=== PATIENT | female | born 1970 | race African-American/Black ===

== ENCOUNTER 2016-07-31 13:52 | Emergency (ER) | payer OTHER ==
[~2016-07-31] VITALS: Ht 167.6 cm; Wt 112.0 kg
[~2016-07-31 13:52] MED LIST: CYCLOBENZAPRINE10 M1 PO; PERCOCET 325 MG1 TA2 PO
[2016-07-31 14:19] LABS: ABSOLUTE BASOPHIL COUNT 0 /CUMM (0.0-0.2); ABSOLUTE EOSINOPHIL COUNT 0.1 /CUMM (0.0-0.7); ABSOLUTE GRANULOCYTE CT 3.9 /CUMM (1.4-6.5); ABSOLUTE LYMPH COUNT 2.1 /CUMM (1.2-3.4); ABSOLUTE MONOCYTE COUNT 0.3 /CUMM (0.10-0.60); BASOPHIL % 0.2 % (0.0-2.0); HEMATOCRIT 36.9 % (37-47); MEAN CORPUSCULAR HGB 25.4 PG (27.0-31.0); MEAN CORPUSCULAR HGB CONC 32.3 G/DL (33.0-37.0); MEAN CORPUSCULAR VOLUME 78.7 FL (81.0-99.0); MEAN PLATELET VOLUME 9.3 FL (7.4-10.4); RBC DISTRIBUTION WIDTH 17.7 % (11.5-14.5); RED BLOOD CELL CT 4.69 /CUMM (4.20-5.40); WHITE BLOOD CELL COUNT 6.4 /CUMM (4.8-10.8)
[2016-07-31 14:27] LABS: PT 10.5 SEC (9.4-12.5); PTT 30 SEC (25-37)
[2016-07-31 14:30] LABS: GRANULOCYTE % 61.3 % (42.2-75.2); PLATELET COUNT 381 /CUMM (130-400)
--- NOTE | 2016-07-31 15:43 | ED CARDIAC/CP/PALPITATIONS ---
See Addendum History of Present Illness General Chief Complaint: Chest Pain Stated Complaint: CHEST PAIN Source: patient Exam Limitations: no limitations Vital Signs & Intake/Output Vital Signs & Intake/Output Vital Signs Date Time Temp Pulse Resp B/P Pulse O2 O2 Flow FiO2 Ox Delivery Rate 07/31 1922 98.3 83 18 135/65 98 Room Air 07/31 1730 98.9 85 18 136/89 100 Room Air 07/31 1415 99 Room Air Room Air 07/31 1406 103 18 129/97 100 Room Air ED Intake and Output 08/01 0000 07/31 1200 Intake Total 0 Output Total Balance 0 Intake, Oral 0 Patient 247 lb Weight Triage Note: 45 Y/O FEMALE BIBA FROM [facility] FOR EVAL OF L SIDED CHEST PAIN X 3 DAYS. [employer] LOOM CONTROL ADMINISTERED 2 DOSES NITRO WITH NO CHANGE IN PAIN. PT ARRIVES A/O X 4, SPEAKING CLEARLY WITH NO DISTRESS NOTED. TEARFUL, C/O L SIDED CHEST PAIN X 3 DAYS MADE WORSE "BY THIS SITUATION" (REFERRING TO ARREST). PT C/O SOB, DENES NAUSEA. EKG IN PROGRESS Triage Nurses Notes Reviewed? yes : No Patient currently breastfeeds: No HPI: This patient is a 45-year-old female who presents to the emergency department today brought in by ambulance from [facility] for evaluation of chest pain. The patient reported that she has been having neck and chest pain since the end of last year. 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 She reported that the chest pain never completely subsides, and gets up to a 9 out of 10. She reported that he feels a squeezing sensation and radiates down her left arm. She denied any numbness or tingling in her extremities. The patient reported that it feels like someone is on her chest. 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 The patient denied any fevers, chills, difficulty breathing, or any urinary symptoms. (RAJESH GOLDSTEIN,HODAN) Allergies Coded Allergies: Iodinated Contrast Media - Oral and (Severe, THROAT CLOSED 05/27/16) Sulfa (Sulfonamide Antibiotics) (Severe, SWELL, THROAT CLOSES 05/27/16) acetaminophen (From VICODIN) (Severe, RASH 07/31/16) amoxicillin (Severe, RASH 07/31/16) aspirin (Severe, HIVES AND THROAT CLOSES 05/27/16) hydrocodone (From VICODIN) (Severe, RASH 07/31/16) ibuprofen (Severe, RASH 07/31/16) peanut (Severe, LIPS/TONGUE SWELLING 05/27/16) citalopram (Intermediate, HIVES 05/27/16) latex (Intermediate, HIVES 05/27/16) morphine (Intermediate, WELTS 05/27/16) codeine (RASH 07/31/16) nut - unspecified (ANAPHYLAXIS 07/31/16) Reconcile Medications Lansoprazole (Prevacid) (Unknown Strength) TAB.RAP.DR (Unknown Dose) PO DAILY HEARTBURN (Reported) place on top of the tongue let dissolve, then swallow Multivitamin (Multi-Day Vitamins) 1 EACH TABLET 1 TAB PO DAILY SUPPLEMENT ( Reported) Oxycodone HCl 10 MG TABLET 1 TAB PO 4 TIMES/DAY PAIN (Reported) Topiramate (Topamax) 100 MG TABLET 1 TAB PO 4 TIMES/DAY SEIZURES/MIGRAINES ( Reported) Zolpidem Tartrate (Ambien Cr) 12.5 MG TAB.MPHASE 1 TAB PO QPM PRN SLEEP ( Reported) (CONSTANTIN PARMAR,FRANTZ Benjamin) Past History Travel History Traveled to [place] past 21 day No Medical History Any Pertinent Medical History? see below for history Neurological: migraine, seizure, CHIARI MALFORMATION EENT: NONE Cardiovascular: CARDIAC CATH Respiratory: NONE Gastrointestinal: NONE Hepatic: NONE Renal: NONE Musculoskeletal: NONE Psychiatric: NONE Endocrine: NONE Blood Disorders: NONE Cancer(s): NONE Surgical History Surgical History: N (cholecystectomy tenectomy and ) Psychosocial History Who do you live with Spouse Services at Home None What is your primary language Mosotho Tobacco Use: Never used Family History Hx Contributory? No (RAJESH GOLDSTEIN,HODAN) Review of Systems Review of Systems Constitutional: Reports: no symptoms. EENTM: Reports: no symptoms. Respiratory: Reports: no symptoms. Cardiovascular: Reports: see HPI. GI: Reports: see HPI. Genitourinary: Reports: no symptoms. Musculoskeletal: Reports: see HPI. Skin: Reports: no symptoms. Neurological/Psychological: Reports: no symptoms. All Other Systems: Reviewed and Negative (HODAN MENA PA-C) Physical Exam Physical Exam Cardiovascular: regular rate/rhythm, normal peripheral pulses, NO MURMURS, RUBS, OR GALLOPS. nO jvd. nO CAROTID BRUITS Comments: Well-developed well-nourished person who is tearful HEENT: Normal EENT exam, head normocephalic, moist mucous membranes PERRLA bilaterally Neck: Supple. No midline tenderness. Full range of motion Back: Normal inspection. No CVA tenderness Respiratory: Tenderness to palpation over the xiphoid aspect of the sternum. No respiratory distress. Speaking in full sentences Abdomen: Soft, nontender and nondistended with normoactive bowel sounds Extremity: No edema, no calf tenderness to palpation, normal and equal pulses. Neuro: Alert oriented x3, cranial nerves II through XII grossly intact. Skin: No appreciable rash on exposed skin, skin is warm and dry. Psych: Mood and affect is depressed Core Measures ACS in differential dx? Yes Severe Sepsis Present: No Septic Shock Present: No (HODAN MENA PA-C) Progress Differential Diagnosis: AMI, aortic dissection, atrial fibrillation, cholecystitis, CHF/pulm edema, costochondritis, hyperkalemia, hyperthyroid, hyperventilation, musculoskeletal pain, myocarditis, pancreatitis, pericarditis, pneumonia, pneumothorax, PSVT, pulmonary embolism, PUD/GERD, PVCs/PACs, sepsis, unstable angina Initial ED EKG: nonspecific ST T wave chg, SINUS TACHYCARDIA, 110 BPM Comments: 07/31/2016 6:45:27 PM: This patient is requesting oxycodone for pain. She will be staying for a repeat troponin and repeat EKG at 8:40 PM. (HODAN MENA PA-C) Plan of Care: Orders Procedure Date/time Status Regular Diet 08/01 B Active TROPONIN LEVEL 07/31 2040 Active EKG 07/31 2040 Active D-DIMER 07/31 1500 Complete Add-on Test (ER Only) 07/31 1448 Active RAPID VIRAL INFLUENZA A 07/31 1447 Complete Add-on Test (ER Only) 07/31 1446 Active HUMAN BETA HCG SCREEN 07/31 1405 Active VITAMIN B12 07/31 1405 Active TROPONIN LEVEL 07/31 1401 Active PARTIAL THROMBOPLASTIN TIME 07/31 1401 Complete PROTHROMBIN TIME 07/31 1401 Complete MAGNESIUM 07/31 1401 Active COMPREHENSIVE METABOLIC PANEL 07/31 1401 Active CBC WITHOUT DIFFERENTIAL 07/31 1401 Complete EKG 07/31 1353 Active Laboratory Tests 07/31/16 1640: Anion Gap 8, Estimated GFR > 60, BUN/Creatinine Ratio 10.0, Glucose 106 H, Calcium 9.4, Magnesium 1.8, Total Bilirubin 0.5, AST 20, ALT 28, Alkaline Phosphatase 117, Troponin I < 0.01, Total Protein 6.9, Albumin 3.7, Globulin 3.2 , Albumin/Globulin Ratio 1.2, Vitamin B12 614, Total Beta HCG Pending, D-Dimer < 200 07/31/16 1405: PT 10.5, INR 1.00, APTT 30, CBC w Diff NO MAN DIFF REQ, RBC 4.69, MCV 78.7 L, MCH 25.4 L, RDW 17.7 H, MPV 9.3, Gran % 61.3, Lymphocytes % 32.2, Monocytes % 5.3, Eosinophils % 1.0, Basophils % 0.2, Absolute Granulocytes 3.9, Absolute Lymphocytes 2.1, Absolute Monocytes 0.3, Absolute Eosinophils 0.1, Absolute Basophils 0, PUBS MCHC 32.3 L Microbiology 07/31 1617 NASOPHARYN: Influenza Virus A & B Rapid Smear - COMP 07/31/2016 9:53:46 PM: Patient signed out to me by Hodan Mena. Repeat troponin negative. Nonspecific changes on initial and repeat EKG, no acute ST elevation or significant ST depression. Patient appears stable for discharge. Discussed with Dr. Zaragoza. (SANDRO SUTTON) Repeat EKG: unchanged (CONSTANTIN PARMAR,FRANTZ Benjamin) Departure Departure Disposition: HOME OR SELF CARE Condition: Stable Clinical Impression Primary Impression: Chest pain Qualifiers: Chest pain type: unspecified Qualified Code: R07.9 - Chest pain, unspecified Referrals: SOSA MONTGOMERY (PCP/Family) Kenji WHITMORE MD Additional Instructions: return for any worsening symptoms or concerns. Departure Forms: Customer Survey General Discharge Information (RAJESH GOLDSTEIN,HODAN) PA/[employer] Co-Sign Statement Statement: ED Attending supervision documentation- [x] I saw and evaluated the patient. I have also reviewed all the pertinent lab results and diagnostic results. I agree with the findings and the plan of care as documented in the PA's/[employer]'s documentation. pt with reproducible chest wall tenderness. trop neg x 2. ekg benign x 2... discussed at length with patient. She will follow up with her pmd and cardiology. [] I have reviewed the ED Record and agree with the PA's/[employer]ISHER's documentation. [] Additions or exceptions (if any) to the PAs/[employer]ER's note and plan are summarized below: [] (CONSTANTIN PARMAR,FRANTZ Benjamin) PA/[employer] Co-Sign Statement Statement: ED Attending supervision documentation- [] I saw and evaluated the patient. I have also reviewed all the pertinent lab results and diagnostic results. I agree with the findings and the plan of care as documented in the PA's/[employer]ER's documentation. [X] I have reviewed the ED Record and agree with the PA's/[employer]ISHER's documentation. [] Additions or exceptions (if any) to the PAs/[employer]ISHER's note and plan are summarized below: [] (SANDOR PARMAR,JOE) Critical Care Note Critical Care Note Critical Care Time: non-applicable (RAJESH GOLDSTEIN,HODAN) Critical Care Time: non-applicable (HODAN MENA PA-C)
[2016-07-31 19:22] VITALS: BP 135/65
[2016-07-31] MEDS ORDERED: OXYCODONE HCL10 M2 PO (19:51)
[2016-07-31] MEDS ORDERED: TOPAMAX100 M1 PO (19:52)
[2016-07-31] MEDS ORDERED: AMBIEN CR12.5 M1 PO (19:52)
[2016-07-31] MEDS ORDERED: MULTI-DAY VITA1 EACH PO (19:53)
[2016-07-31] MEDS ORDERED: PREVACID15 M2 PO (19:53)
== END 2016-07-31 22:12 ==
LOC: ERH 13:52
PROVIDERS: Emergency Medicine
DX: R07.9 Chest pain, unspecified (principal)
CPT/HCPCS: 87804; 87804-59; 93005; 93010; 96361; 96374; J3490